=== PATIENT | female | born 1980 | race Caucasian/White ===

== ENCOUNTER 2019-11-01 05:03 | Inpatient (IN) ==
--- NOTE | 2019-10-31 19:50 | HISTORY AND PHYSICAL ---
HISTORY OF PRESENT ILLNESS: Patient is a 39-year-old white female, G2, P1, who is 39 weeks by a due date of 11/05/2019 that was confirmed by second trimester ultrasound. Patient has also expressed desire for permanent sterilization and has signed Medicaid tubal paper. This also has been evaluated by [facility] for advanced maternal age, and everything was normal in their evaluation. Group B strep culture was negative. PAST MEDICAL HISTORY: Unremarkable. PAST SURGICAL HISTORY: section x1. PAST OBSTETRICAL HISTORY: G2, P1. section x1. weighed 5 pounds 1 ounce. GYNECOLOGICAL HISTORY: Menarche at age 16. REVIEW OF SYSTEMS: All systems reviewed and noncontributory. FAMILY HISTORY: Unremarkable. SOCIAL HISTORY: Tobacco use, half a pack per day. Alcohol use none. MEDICATIONS: vitamins. ALLERGIES: No known drug allergies. PHYSICAL EXAMINATION: VITAL SIGNS: Height 5 feet 7 inches, weight 267 pounds, temperature 98.1 degrees, blood pressure 148/84, respirations 20. heart rate in the 140s with udon-es-bctq variability. HEENT: Pupils equal, round, reactive to light and accommodation. Extraocular movements intact. Oropharynx clear. NECK: Supple. No thyromegaly. LUNGS: Clear to auscultation. HEART: Regular rate and rhythm. ABDOMEN: Gravid, nontender. EXTREMITIES: No clubbing, cyanosis, or edema noted. NEUROLOGIC: Cranial nerves 2 through 12 grossly intact. Motor 5/5. ASSESSMENT AND PLAN: 1. A 39-year-old white female G2, P1 with history of prior section for elective repeat section at 39 weeks gestation. 2. Desires permanent sterilization. Patient counseled about the risks of surgery including bleeding, infection, bowel or bladder injury. Patient also counseled about the permanency of tubal ligation, failure rate of 2 to 12/999, as well as the availability of reversible alternatives such as IUD, control pills, patches, injectables, etc. cc: Jonatan Leal III, MD
[2019-11-01] MEDS ORDERED: PEPCID PO ONE (05:09)
[2019-11-01] MEDS ORDERED: REGLAN PO ONE (05:09)
[2019-11-01] MEDS ORDERED: BICITRA PO ONE (05:13)
[2019-11-01] MEDS ORDERED: KEFZOL 2 GM/D5W 2 GM/50 ML IVPB IV ONE (05:13)
[2019-11-01] MEDS: LR 1,000 ML IV SCH ×2 (05:50→06:45)
[2019-11-01 06:15] LABS: BASO# 0.05 X1000 (0.0-0.2); BASO% 0.4 % (0.0-0.8); EOS# 0.19 X1000 (0.0-0.7); EOS% 1.7 % (0.0-10.0); HEMATOCRIT 32.5 % (37.0-47.0); HEMOGLOBIN 10.2 g/dL (12.0-16.0); IMM GRAN# 0.06 X1000 (0.0-0.04); IMM GRAN% 0.5 % (0.0-0.5); LYMPH# 2.96 X1000 (1.2-3.4); LYMPH% 26.3 % (20.5-51.1); MCH 18.8 PG (27-31); MCHC 31.4 g/dL (33-37); MONO# 0.57 X1000 (0.11-0.59); MONO% 5.1 % (1.7-9.3); NEUT# 7.44 X1000 (1.4-6.5); PLT 319 X1000 (130-400); RBC 5.42 XMIL (4.2-5.4); WBC 11.27 X1000 (4.8-10.8)
[2019-11-01 06:16] LABS: URINE SOURCE VOIDED
[2019-11-01 06:22] LABS: BILIRUBIN URINE NEGATIVE (NEGATIVE); BLOOD URINE NEGATIVE (NEGATIVE); COLOR YELLOW; GLUCOSE URINE NEGATIVE (NEGATIVE); KETONE URINE NEGATIVE (NEGATIVE); LEUKOCYTES URINE TRACE (NEGATIVE); NITRITE URINE NEGATIVE (NEGATIVE); PROTEIN URINE TRACE mg/dL (NEGATIVE); SP GRAVITY URINE 1.029; TURBIDITY URINE CLEAR (CLEAR); UROBILINOGEN URINE NORMAL (NORMAL)
[2019-11-01 06:38] LABS: UR AMPHETAMINES QUAL NONE DETECTED (NONE DETECT); UR BARBITUATES QUAL NONE DETECTED (NONE DETECT); UR BENZODIAZEPIN QUAL NONE DETECTED (NONE DETECT); UR CANNABINOIDS QUAL NONE DETECTED (NONE DETECT); UR COCAINE QUAL NONE DETECTED (NONE DETECT); UR METHADONE QUAL NONE DETECTED (NONE DETECT); UR OPIATES QUAL NONE DETECTED (NONE DETECT); UR OXYCODONE QUAL NONE DETECTED (NONE DETECT); UR PCP QUAL NONE DETECTED (NONE DETECT)
[2019-11-01] MEDS ORDERED: PITOCIN ONE (06:40)
[2019-11-01] MEDS ORDERED: EPHEDRINE ONE (06:40)
[2019-11-01] MEDS ORDERED: NEO-SYNEPHRINE ONE (06:40)
[2019-11-01] MEDS ORDERED: ZOFRAN ONE (06:40)
[2019-11-01] MEDS ORDERED: SODIUM CHLORIDE 0.9% 10 ML ONE (06:40)
[2019-11-01] MEDS ORDERED: MORPHINE ONE (06:49)
[2019-11-01] MEDS ORDERED: DURAMORPH ONE (07:01)
[2019-11-01] MEDS ORDERED: TORADOL ONE (07:40)
[2019-11-01 07:56] LABS: EOS 1 % (1-10); LYMPHS 28 % (21-51); MONO 5 % (1-9); SEGS 66 % (42-75)
[2019-11-01] MEDS ORDERED: DULCOLAX PR PRN (08:22)
[2019-11-01] MEDS ORDERED: PERCOCET-5 PO PRN (08:22)
[2019-11-01] MEDS ORDERED: MYLICON PO PRN (08:22)
[2019-11-01] MEDS ORDERED: MOTRIN PO PRN (08:22)
[2019-11-01] MEDS ORDERED: HYDROXYZINE IM PRN (08:22)
[2019-11-01] MEDS ORDERED: DEMEROL IM PRN (08:22)
[2019-11-01] MEDS ORDERED: BOOSTRIX VACCINE IM ONE (08:22)
[2019-11-01] MEDS ORDERED: AMBIEN PO PRN (08:22)
[2019-11-01] MEDS ORDERED: PITOCIN IM PRN (08:22)
[2019-11-01] MEDS ORDERED: M-M-R II VACCINE SUBQ ONE (08:22)
[2019-11-01] MEDS ORDERED: PHENERGAN IM PRN (08:22)
[2019-11-01] MEDS ORDERED: DEMEROL PO PRN ×2 (08:22)
[2019-11-01] MEDS ORDERED: PITOCIN 20 UNITS/NS 20 UNITS/1,000 ML IV.SOLN IV ONE (08:22)
[2019-11-01] MEDS ORDERED: ATARAX PO PRN (08:22)
[2019-11-01] MEDS ORDERED: TORADOL IV SCH (08:30)
[2019-11-01] MEDS ORDERED: MORPHINE IV PRN (09:19)
[2019-11-01] MEDS ORDERED: ZOFRAN ODT PO PRN (09:30)
[2019-11-01] MEDS ORDERED: ZOFRAN IV PRN ×2 (09:30)
[2019-11-01] MEDS ORDERED: NARCAN INJ PRN (09:30)
[2019-11-01] MEDS ORDERED: BENADRYL IV PRN (09:30)
[2019-11-01] MEDS: MYLICON PO SCH ×4 (09:39→23:20)
--- NOTE | 2019-11-01 13:14 | OPERATIVE NOTE ---
PROCEDURE DATE: 11/01/2019 PREOPERATIVE DIAGNOSIS: 1. Intrauterine at 39 and 3/7 weeks for repeat . 2. Desires permanent sterilization. POSTOP DIAGNOSIS: 1. Intrauterine at 39 and 3/7 weeks for repeat . 2. Desires permanent sterilization. 3. Delivery of a female infant, 6 pounds 11 ounces with Apgars of 8 and 9 at 07:33 on 11/01/2019. PROCEDURE: 1. Repeat low-transverse section. 2. Bilateral tubal ligation. SURGEON: Jonatan Leal III, MD. EMPLOYMENT LEGAL ASSISTANT: Wade Umana DO. ANESTHESIA: Spinal, Dr. Stanley. FINDINGS: Normal-appearing uterus, tubes, and ovaries, and meconium-stained amniotic fluid. COMPLICATIONS: None. ESTIMATED BLOOD LOSS: 600 mL. SPECIMENS REMOVED: Right and left fallopian tube segments. DRAINS: Rothman to straight drain. COUNTS: All counts were correct x4. INDICATIONS: The patient is a 39-year-old white female, G2, P1, at 39 and 3/7 weeks with history of for elective repeat . Patient also desires permanent sterilization. The patient counseled about the risks of surgery including bleeding, infection, bowel or bladder injury. The patient also counseled about the permanency of tubal ligation, failure rate of 2 to 12/999, as well as the availability of reversible alternatives such as IUD, control pills, patches, etc. DESCRIPTION OF PROCEDURE: The patient was taken to Labor and Delivery OR. Spinal anesthesia was then employed. The patient was placed in a supine position with a roll under right hip. She was then prepped and draped in sterile fashion with placement of Rothman catheter. Adequate anesthesia was noted by using Allis clamps on skin and a Pfannenstiel skin incision was made on lower abdomen using scalpel. This was taken down sharply to the fascia layer. Small josh was made in the rectus fascia. Fascial incision was extended bilaterally by curved Castano scissors. Then sharp and blunt dissection of the superior and inferior aspects of the rectus fascia was performed. Rectus muscle was divided in midline. Peritoneal layer was entered bluntly. The peritoneal incision was extended superiorly and inferiorly with care taken to avoid the bladder. Bladder reflection was created using Metzenbaum scissors. Bladder blade was placed into the abdominal cavity at this point in time, and then a transverse incision was made on the lower uterine segment using scalpel. Upon entry into the amniotic cavity, meconium-stained fluid was noted. The vertex was then elevated toward the hysterotomy site and with gentle fundal pressure, head was delivered. OP presentation was noted. Nuchal cord x1 was easily reduced prior to the delivery of the head and the bulb suction of nose and mouth at this time. The rest of the body was delivered atraumatically with gentle fundal pressure. Umbilical cord was clamped twice and cut. handed to nursery nurse in attendance for delivery. Cord blood sample was obtained at this time. Placenta was then manually extracted. Uterus was exteriorized. Wet lap was placed around the uterus. Dry lap was then used to curette the uterine cavity of clots and debris. Then the uterine incision was closed using 0 chromic in a running locking fashion x1. A small area of oozing was noted on the right side of the incision, made hemostatic with a [id number] of 0 chromic. At this point in time, attention was turned to the fallopian tube. Michelle clamp grabbed the right fallopian tube near the isthmus and electrocautery was used to obtain a hole in the mesosalpinx. Then 0 plain suture was used to ligate a portion of the fallopian tube. This portion was then excised using Metzenbaum scissors and electrocautery was used to obtain hemostasis and touch the ends of the tubes. This was handed off to be placed in a specimen container. Attention was then turned to the left fallopian tube which was grasped with a Turtlepoint clamp near the isthmus and a hole was made in the mesosalpinx using electrocautery. Zero plain suture was then used to ligate a portion of this fallopian tube, and then this was excised using Metzenbaum scissors. Once again, electrocautery was used to obtain hemostasis as well as to touch the ends of the fallopian tube. The posterior cul-de-sac was then irrigated copiously. Then the uterus was replaced back into the abdominal cavity. The pericolic gutters were cleansed using moist lap sponges. Uterine incision and bladder reflection were inspected. Good hemostasis was noted. The peritoneal incision was then closed using 0 chromic in a running fashion x1. One interrupted stitch was used to reapproximate the rectus muscle. The fascia layer was then closed using 0 PDS in a running fashion x1. Irrigation of the subcutaneous tissue was then performed. Electrocautery was used to obtain hemostasis. The subcutaneous layer was then reapproximated using interrupted 2-0 chromic stitches and then the skin was then reapproximated using vadim. Patient tolerated the procedure well, was taken to recovery room in stable condition. All counts were correct x4. cc: Jonatan Leal III, MD
[2019-11-01] MEDS: TORADOL IV SCH ×2 (14:15→19:58)
[2019-11-01] MEDS: PITOCIN 10 UNITS/NS 1,000 ML IV SCH (19:04)
[2019-11-01] MEDS: PERCOCET-10 PO PRN (23:18)
[2019-11-01] MEDS: PERICOLACE PO SCH (23:19)
[2019-11-02] MEDS: TORADOL IV SCH ×3 (01:52→16:32)
[2019-11-02] MEDS: PITOCIN 10 UNITS/NS 1,000 ML IV SCH (04:29)
[2019-11-02 04:38] LABS: HEMATOCRIT 27.4 % (37.0-47.0); HEMOGLOBIN 8.4 g/dL (12.0-16.0); MCH 18.9 PG (27-31); MCHC 30.7 g/dL (33-37); MCV 61.6 FL (81-99); PLT 253 X1000 (130-400); RBC 4.45 XMIL (4.2-5.4); RDW 15.6 % (11.5-14.5); WBC 12.05 X1000 (4.8-10.8)
[2019-11-02] MEDS ORDERED: LR 1,000 ML IV SCH (08:22)
[2019-11-02] MEDS: FERROUS SULFATE PO SCH (10:52)
[2019-11-02] MEDS: MYLICON PO SCH ×3 (10:52→20:06)
[2019-11-02] MEDS: PERCOCET-10 PO PRN ×2 (16:30→20:06)
[2019-11-02] MEDS: PERICOLACE PO SCH (20:06)
[2019-11-03] MEDS ORDERED: MAALOX PLUS LIQUID PO ONE (02:36)
[2019-11-03 04:09] VITALS: BP 142/65
--- NOTE | 2019-11-03 07:29 | OB/GYN PROGRESS NOTE ---
- Subjective 39 yo POD#2 s/p Rpt C/S with RACHEL MATHUR Patient seen and examined. Her pain is controlled. She is ambulating in the room and voiding without difficulty. She is passing flatus. She is tolerating a regular diet, denies nausea/vomiting. She notes minimal lochia. Her baby was transferred to and she desires d/c from the hospital today. OB Physical Exam Vital Signs - 8 hr 11/03/19 00:18 11/03/19 04:08 Temperature 96.7 F L 97.9 F Pulse Rate 78 79 Respiratory Rate 18 18 Blood Pressure 110/57 142/65 O2 Sat by Pulse Oximetry 97 100 - CONSTITUTIONAL General Appearance: appears well, alert, no apparent distress - EYES Eyes: PERRL/EOMI - HEAD, EARS, NOSE, MOUTH & THROAT HENMT: normocephalic/atraumatic - RESPIRATORY Respiratory: lungs clear, normal breath sounds, no respiratory distress - CARDIOVASCULAR Cardiovascular: normal peripheral pulses, regular rate, rhythm - GASTROINTESTINAL (ABDOMEN) Abdominal Exam: normal bowel sounds, soft, other (ATTP, fundus firm/below umbilicus. Pfannensteil skin incision c/d/i with vadim, small amount bruising near incision edge) - MUSCULOSKELETAL Extremity: normal range of motion, normal gait, no calf tenderness, other (mild edema) - NEUROLOGIC Neurologic: grossly normal - PSYCHIATRIC Psych/Mental Status: normal mood/affect Active Medications Generic Name Dose Route Start Last Admin Trade Name Freq PRN Reason Stop Dose Admin Bisacodyl 10 mg 11/01/19 08:22 Dulcolax WA PRN PRN gas unrelieved by Mylicon Ferrous Sulfate 325 mg 11/02/19 09:00 11/02/19 10:52 Ferrous Sulfate PO 325 mg DAILY DUDLEY Administration Hydroxyzine HCl 50 mg 11/01/19 08:22 Atarax PO Q3-4H PRN PRN Nausea Hydroxyzine HCl 50 mg 11/01/19 08:22 Hydroxyzine IM Q3-4H PRN PRN Nausea Ibuprofen 800 mg 11/01/19 08:22 11/02/19 21:41 Motrin PO 800 mg Q8H PRN PRN Administration Pain Meperidine HCl 50 mg 11/01/19 08:22 Demerol IM Q3H PRN PRN Pain Meperidine HCl 50 mg 11/01/19 08:22 Demerol PO Q4H PRN PRN Pain (1-6 on Pain Scale) Meperidine HCl 100 mg 11/01/19 08:22 Demerol PO Q4H PRN PRN Pain (7-10 on Pain Scale) Oxycodone/Acetaminophen 1 each 11/01/19 08:22 11/02/19 20:06 Percocet-10 PO 1 each Q3-4H PRN PRN Administration Pain (7-10 on Pain Scale) Oxycodone/Acetaminophen 1 each 11/01/19 08:22 Percocet-5 PO Q3-4H PRN PRN Pain (1-6 on Pain Scale) Oxytocin 20 unit 11/01/19 08:22 Pitocin IM PRN PRN Severe bleeding Promethazine HCl 25 mg 11/01/19 08:22 Phenergan IM Q3H PRN PRN Pain Senna/Docusate Sodium 1 each 11/01/19 21:00 11/02/19 20:06 Pericolace PO 1 each QHS DUDLEY Administration Simethicone 80 mg 11/01/19 09:00 11/02/19 20:06 Mylicon PO 80 mg PC + HS DUDLEY Administration Simethicone 80 mg 11/01/19 08:22 Mylicon PO PRN PRN GAS Zolpidem Tartrate 10 mg 11/01/19 08:22 Ambien PO HS PRN PRN Sleep OB Assessment & Plan (1) S/P Status: Acute Plan: 39 yo POD#2 s/p Rpt C/S with BTL with AMA 1. HD stable, afebrile 2. Routine post- care 3. transferred to NICU 4. D/c home today to f/u with Dr. Leal on Wednesday 11/08
[2019-11-03] MEDS: MYLICON PO SCH ×2 (08:46→09:08)
--- NOTE | 2019-11-03 08:57 | DISCHARGE SUMMARY ---
ADMISSION DATE: 11/01/2019 DISCHARGE DATE: 11/03/2019 CONDITION ON DISCHARGE: Stable. PRIMARY PHYSICIAN: Dr. Jonatan Leal III. FINAL DIAGNOSES: 1. Postoperative day #2, status post repeat section with bilateral tubal ligation, at 39 weeks. 2. Advanced maternal age. HOSPITAL COURSE: The patient presented to labor and delivery on 11/01/2019 for a scheduled repeat section at 39 weeks with a bilateral tubal ligation. The procedure was uncomplicated and she had a routine course. On postop day #2, she was deemed stable for discharge. She was meeting her postoperative goals, ambulating and voiding without difficulty, passing flatus, tolerating a regular diet. Her was transferred to [facility] due to a heart murmur discovered after . She desires to be discharged today. FOLLOWUP MEDICATIONS: 1. Percocet 5/325 q.3 hours p.r.n. pain, dispense #24. 2. Motrin 800 mg p.o. q.8 hours p.r.n. pain. 3. Cassie-Colace 1 tablet p.o. at bedtime p.r.n. constipation. 4. vitamin p.o. daily. 5. Ferrous sulfate 325 mg p.o. daily. DISCHARGE INSTRUCTIONS: Patient instructed to notify doctor with temperature greater than 100.4 degrees Fahrenheit, foul-smelling vaginal discharge, heavy vaginal bleeding greater than 1 pad an hour, or severe abdominal pain. The patient is instructed to place nothing in her vagina for 6 weeks, no tampons/douching/sex. FOLLOWUP APPOINTMENTS: Patient instructed to follow up with Dr. Leal on 11/08/2019, for an incision check. cc: Jonatan Leal III, MD
[2019-11-03] MEDS: FERROUS SULFATE PO SCH (09:08)
== END 2019-11-03 08:40 | disposition home or self-care (01) | DRG 785 ==
LOC: LD 05:03
PROVIDERS: ADMIT Obstetrics & Gynecology; ATTEND Obstetrics & Gynecology